=== PATIENT | female | born 1975 | race Caucasian/White ===

== ENCOUNTER 2016-10-31 20:56 | Inpatient (IN) | payer BC, MEDICAID ==
[~2016-10-31] VITALS: Ht 170.2 cm; Wt 114.5 kg
--- NOTE | ~2016-10-31 | HP ---
Unit #: [id number] #: [id number] Patient: MITCHEL MEJIA [id number] [address] [place], [place] [address] [id number] I MR#: [id number] NAME: MITCHEL MEJIA ROOM: CIC2 Age: 40 Sex: F Admission Date: 10/31/2016 : 1975 Attending Physician: Raymundo Grady M.D. Primary Care Physician: No Primary Care Physician HISTORY AND PHYSICAL DATE November 01, 2016. CHIEF COMPLAINT Shortness of breath. HISTORY OF PRESENT ILLNESS A 40-year-old female who has had asthma all her life, currently on albuterol only. She has been tried on a variety of other inhalers such as Symbicort and Advair but did not have them over the last several months. Over the last several months, she has had increasing shortness of breath, chest tightness. She actually went to an emergency room about two weeks ago, received prednisone and improved but then worsened. She called her family doctor for Advair but there was some insurance mixup. Finally, she presented to the emergency room here. Apparently, EMS started bagging the patient en route. She was treated in the emergency room. BiPAP was ordered as needed and transferred to the intensive care unit. Overnight, she has done very well. She currently is off oxygen and saturations are 100%. She feels back to basically her normal state. She had cough, minimal sputum production. No fever. No hemoptysis. No chest pain. She cannot think of any particular exposures. PAST MEDICAL HISTORY 1. Asthma. 2. Bipolar disorder, currently requiring no medications. 3. Occasional insomnia. 4. The need for bilateral hearing aide. HOME MEDICATIONS 1. Albuterol as needed. 2. Sleep aide that she cannot remember the name of that she takes maybe twice a week. ALLERGIES Penicillin and Bactrim. SOCIAL HISTORY She is a never smoker. She lives in an apartment. FAMILY HISTORY Asthma in her father. REVIEW OF SYSTEMS She has been allergy tested in the past and is allergic to pollens and Unit #: [id number] #: [id number] Patient: MITCHEL MEJIA some foods. She denies fever, chills, headache, chest pain, palpitations, abdominal pain, melena, hematochezia, nausea, vomiting, hematuria, dysuria, focal weakness, paraesthesia, leg pain, swelling. Further review of systems negative. PHYSICAL EXAMINATION GENERAL: Reveals a patient who is in no acute distress. She is eating well. VITAL SIGNS: Saturations are 100% on room air. She is afebrile. Pulse 95, respiratory rate 12, blood pressure is 105/59. She is 5 foot 7 inches, 252 pounds. BMI is 39. HEENT: Pupils equal, round, reactive to light. Sclerae anicteric. Head: Atraumatic. NECK: Supple. No supraclavicular or cervical adenopathy appreciated. CHEST: Remarkably clear. No wheeze, stridor. CARDIAC: Reveals regular rate and rhythm. No pathologic murmur, rub, or gallop. ABDOMEN: Soft, nontender. No hepatomegaly, rebound. EXTREMITIES: Reveal no clubbing, cyanosis, or edema. No calf tenderness. SKIN: Warm and dry without rash or diaphoresis. NEUROLOGIC: Grossly intact. No focal muscle or sensory deficits. DIAGNOSTIC STUDIES LABORATORY: BUN 11, creatinine 0.7, sodium 130. BNP 7. Beta hCG negative. Cardiac enzymes negative. CBC normal. No eosinophilia. IMAGING: Chest x-ray: Negative. CARDIOVASCULAR: EKG: Sinus tachycardia. IMPRESSION 1. Asthma with exacerbation. 2. Clinical respiratory failure requiring bagging and EMS and consideration of noninvasive mask ventilation, resolved. 3. Bipolar disorder, stable. 4. Occasional insomnia. 5. Hyponatremia. PLAN Admission to the hospital. She is markedly improved. I think she can transfer out of the intensive care unit. She needs controlling medications including inhaled steroids and I will add Singulair. These will need to be continued as an outpatient. Ultimately, she might benefit from repeat allergy testing and PFTs. She does have significant obesity. Consider evaluation for sleep apnea. Dictated by Raymundo Grady M.D. JERMAIN/raina TD: 11/01/2016 10:49 JOB #: [id number] Unit #: [id number] #: [id number] Patient: MITCHEL MEJIA HISTORY AND PHYSICAL Page 1 of 1 X Raymundo Grady MD X HISTORY AND PHYSICAL
--- NOTE | ~2016-10-31 | CR72 ---
[facility] A Service of [facility] & [facility] RADIOLOGY TEXT RESULTS PATIENT: MITCHEL MEJIA LOCATION: [facility] 222-01 : [birth year] UNIT #: [id number] AGE: [address]: Raymundo Grady MD SEX: F ORDER DR: [id number] [facility] [address] [place], [place] [address] [id number] I MR#: [id number] Acc #: [id number] NAME: MITCHEL MEJIA : 1975 SEX: F STUDY DATE/TIME: 10/31/2016 21:18 UNIT: [facility] ROOM: [facility] STUDY DESCRIPTION: CR Chest Single View Portable Attending Physician: Raymundo Grady M.D. Ordering Physician: Adam Mccarthy D.O. Primary Care Physician: No Primary Care Physician MEDICAL IMAGING REPORT This report is preliminary unless electronic signature is present EXAM Portable chest 10/31/2016. HISTORY 40-year-old female with shortness of air beginning today. COMPARISON None. FINDINGS Frontal chest demonstrates clear lungs. No pleural effusion or pneumothorax. Heart size, mediastinum within normal limits. Pulmonary vasculature unremarkable. IMPRESSION No acute cardiopulmonary findings. Dictated by... Fede Painting M.D. THIS IS AN ELECTRONICALLY VERIFIED REPORT Fede Painting M.D. at 11/01/2016 3:18 PM JKB/shana TD: 11/01/2016 10:14 JOB #: [id number] MEDICAL IMAGING REPORT Page 1 of 1 COPY
--- NOTE | ~2016-10-31 | CR63 ---
[facility] A Service of [facility] RADIOLOGY TEXT RESULTS PATIENT: MITCHEL MEJIA LOCATION: [facility] 222-01 : 75 UNIT #: [id number] AGE: [address]: Raymundo Grady MD SEX: F ORDER DR: [id number] [facility] [address] [place], [place] [address] [id number] I MR#: [id number] Acc #: [id number] NAME: MITCHEL MEJIA : 1975 SEX: F STUDY DATE/TIME: 11/02/2016 7:42 UNIT: C2A ROOM: 222 STUDY DESCRIPTION: CR Chest 2 View Attending Physician: Raymundo Grady M.D. Ordering Physician: Yifan Pemberton M.D. Primary Care Physician: No Primary Care Physician MEDICAL IMAGING REPORT This report is preliminary unless electronic signature is present EXAM Chest, 11/02/2016, [facility]. HISTORY 40-year-old female short of air past 2 days. Patient also indicates cough at this time. History of asthma with possible exacerbation. COMPARISON Portable chest, 11/01/2016. FINDINGS Two-view chest demonstrates normal cardiac size and configuration. Hilar structures and mediastinal contours are preserved. Right lung is fully expanded and clear. Minimal atelectasis is noted left lung base with blunting of the left costophrenic angle. No convincing evidence for airspace infiltrates at this time. IMPRESSION 1. No vascular congestion noted. 2. Discoid atelectasis in the left lung base laterally with a obscuration of the costophrenic angle. I see no evidence for pneumonia at this time. Dictated by... Donavan Angel M.D. THIS IS AN ELECTRONICALLY VERIFIED REPORT Donavan Angel M.D. at 11/02/2016 1:47 PM ABBY/lisa TD: 11/02/2016 13:02 JOB #: [id number] [facility] A Service of [facility] RADIOLOGY TEXT RESULTS PATIENT: MITCHEL MEJIA LOCATION: [facility] 222-01 : [birth year] UNIT #: [id number] AGE: [address]: Raymundo Grady MD SEX: F ORDER DR: MEDICAL IMAGING REPORT Page 1 of 1 COPY
--- NOTE | ~2016-10-31 | DS ---
Unit #: [id number] #: [id number] Patient: MITCHEL MEJIA [id number] [address] [address] [id number] I MR#: [id number] NAME: MITCHEL MEJIA ROOM: 222 Age: 41 Sex: F Admission Date: 10/31/2016 : 1975 Discharge Date: 11/02/2016 Attending Physician: Raymundo Grady M.D. Primary Care Physician: Primary Care Physician No DISCHARGE SUMMARY DISCHARGE DIAGNOSES 1. Respiratory failure, requiring mask ventilation in EMS, resolved. 2. Hyponatremia, likely some degree of syndrome of inappropriate antidiuretic hormone secretion secondary to critical illness, resolved. 3. Asthma, improved. 4. Obesity. 5. Bipolar disorder. DISCHARGE MEDICATIONS Advair 500/50 one puff b.i.d., ProAir two puffs q.i.d. p.r.n., albuterol via nebulizer q.i.d. p.r.n., Singulair 10 mg one tablet at night, prednisone 40 mg a day for five days. FOLLOW UP She will follow up Dr. Artis in 2 to 3 weeks for general medical care. Follow up with our nurse practitioner in 2 weeks, consider arranging PFTs. Follow up with Dr. Grady in 6 to 8 weeks. DIET As tolerated. ACTIVITY No specific restrictions. DESCRIPTION OF HOSPITALIZATION The patient was admitted to the intensive care unit initially because of her significant respiratory failure and increased work of breathing. She rapidly improved with steroids and nebulized bronchodilators. She was treated with a few doses of antibiotics, but further history really there was no evidence of any acute bronchitis and her antibiotics were discontinued at discharge. On the day of discharge, her chest was clear. Her sodium was mildly low on admission and that had corrected to value of 137. She was ambulating, eating, and able to perform all activities of daily living. I have discussed with her the need for controlling medications and compliance. She will be treated with the above medications and followed up closely in the office. She will need PFTs. We will consider nocturnal polysomnography after further investigation and discussion. We will consider allergy testing. Dictated by... Raymundo Grady M.D. Unit #: [id number] #: [id number] Patient: MITCHEL MEJIA JERMAIN/jeanna TD: 11/05/2016 17:44 JOB #: [id number] DISCHARGE SUMMARY Page 1 of 1 X Raymundo Grady MD DISCHARGE SUMMARY
--- NOTE | ~2016-10-31 | EKG ---
PATIENT: MITCHEL MEJIA UNIT #: [id number] Ventricular Rate: 133 BPM Atrial Rate: 133 BPM P-R Interval: 134 ms QRS Duration: 66 ms Q-T Interval: 290 ms QTC Calculation(Bezet): 431 ms P Mcgregor: 67 degrees Calculated R Mcgregor: 48 degrees Calculated T Mcgregor: 26 degrees Diagnosis Line: Sinus tachycardia Diagnosis Line: Otherwise normal ECG Diagnosis Line: No previous ECGs available Diagnosis Line: Confirmed by MARCO MICHELLE MD ([id number]) on Diagnosis Line: 11/03/2016 10:48:29 AM INTERPRETING MD: MIGUEL ANGEL REBOLLAR
--- NOTE | ~2016-10-31 | CR72 ---
[facility] A Service of [facility] & [facility] RADIOLOGY TEXT RESULTS PATIENT: MITCHEL MEJIA LOCATION: [facility]2A 222-01 : [birth year] UNIT #: [id number] AGE: [address]: Raymundo Grady MD SEX: F ORDER DR: [id number] [facility] [address] [place], [place] [address] [id number] I MR#: [id number] Acc #: [id number] NAME: MITCHEL MEJIA : 1975 SEX: F STUDY DATE/TIME: 11/01/2016 4:56 UNIT: C2A ROOM: 222 STUDY DESCRIPTION: CR Chest Single View Portable Attending Physician: Raymundo Grady M.D. Ordering Physician: Raymundo Grady M.D. Primary Care Physician: Primary Care Physician No MEDICAL IMAGING REPORT This report is preliminary unless electronic signature is present EXAM Portable chest INDICATIONS Shortness of air and cough today. PROCEDURE Frontal view chest. COMPARISON 10/31/2016 FINDINGS Heart size unchanged. Central pulmonary vessels are slightly increased. No new dense consolidation visible pleural fluid or pneumothorax. IMPRESSION Slightly increased central pulmonary vessels suggesting mild congestion. Otherwise stable Dictated by... Gabriel Gonzalez M.D. THIS IS AN ELECTRONICALLY VERIFIED REPORT Gabriel Gonzalez M.D. at 11/02/2016 9:56 PM ABRAHAM/warner TD: 11/01/2016 12:44 JOB #: [id number] MEDICAL IMAGING REPORT Page 1 of 1 COPY
[2016-10-31 21:29] LABS: BASOPHIL% 0.3 % (0-2.5); EOSINOPHIL# 0.5 X10e3 (0-0.7); EOSINOPHIL% 3.5 % (0.0-7.0); HEMATOCRIT 41.1 % (35.0-45.0); HEMOGLOBIN 13.4 gm/dL (12.0-16.0); LYMPHOCYTE# 3.3 X10e3 (1.0-3.5); LYMPHOCYTE% 23.5 % (17.0-45.0); MEAN CELL VOLUME 93.5 FL (83-96); MEAN CORPUSCULAR HEMOGLOBIN 30.5 PG (28-34); MEAN CORPUSCULAR HGB CONC 32.6 g/dL (30-36); MEAN PLATELET VOLUME 7.5 FL (6.5-11.5); MONOCYTE# 0.9 X10e3 (0-1.0); MONOCYTE% 6.4 % (3.0-12.0); NEUTROPHIL# 9.2 X10e3 (1.5-7.1); NEUTROPHIL% 66.3 % (40-75); PLATELET COUNT 233 X10e3 (140-420); RED CELL DISTRIBUTION WIDTH 13.6 % (11.0-15.5); WHITE BLOOD COUNT 13.9 X10e3 (4.0-10.5)
[2016-10-31 21:30] LABS: DIFF IND NO
[2016-10-31 21:45] LABS: POC - CKMB 1.1 ng/mL (0.0-7.9); POC - TROPONIN <0.05 ng/mL (<=0.05)
[2016-10-31 21:56] LABS: CALCIUM SERUM 8.8 mg/dL (8.4-10.2); CREATININE SERUM 0.8 mg/dL (0.6-1.4); GLOM FILT RATE Estimated 92.3 mL/min (>60); POTASSIUM 3.8 mmol/L (3.5-5.1)
[2016-11-01 06:19] LABS: BASOPHIL% 0.1 % (0-2.5); EOSINOPHIL% 0.2 % (0.0-7.0); HEMATOCRIT 38.4 % (35.0-45.0); HEMOGLOBIN 12.9 gm/dL (12.0-16.0); LYMPHOCYTE# 0.4 X10e3 (1.0-3.5); LYMPHOCYTE% 4.8 % (17.0-45.0); MEAN CELL VOLUME 93.3 FL (83-96); MEAN CORPUSCULAR HEMOGLOBIN 31.3 PG (28-34); MEAN CORPUSCULAR HGB CONC 33.5 g/dL (30-36); MEAN PLATELET VOLUME 7.5 FL (6.5-11.5); MONOCYTE# 0.1 X10e3 (0-1.0); MONOCYTE% 0.6 % (3.0-12.0); NEUTROPHIL# 8.8 X10e3 (1.5-7.1); NEUTROPHIL% 94.3 % (40-75); PLATELET COUNT 209 X10e3 (140-420); RED BLOOD COUNT 4.11 X10e (3.90-5.30); RED CELL DISTRIBUTION WIDTH 13.3 % (11.0-15.5); WHITE BLOOD COUNT 9.3 X10e3 (4.0-10.5)
[2016-11-01 06:21] LABS: DIFF IND NO
[2016-11-01 06:53] LABS: BUN/CREATININE RATIO 15.71; CALCIUM SERUM 8.4 mg/dL (8.4-10.2); CREATININE SERUM 0.7 mg/dL (0.6-1.4); GLOM FILT RATE Estimated 108.4 mL/min (>60); POTASSIUM 4.1 mmol/L (3.5-5.1)
[2016-11-01] MEDS ORDERED: ALBUTEROL17 GM INH (08:09)
[2016-11-01] MEDS ORDERED: HYDRALAZINE HCL50 MG (08:10)
[2016-11-02 05:23] LABS: BASOPHIL% 0.1 % (0-2.5); LYMPHOCYTE# 0.9 X10e3 (1.0-3.5); LYMPHOCYTE% 6.5 % (17.0-45.0); MEAN CELL VOLUME 92.8 FL (83-96); MEAN CORPUSCULAR HGB CONC 33.4 g/dL (30-36); MEAN PLATELET VOLUME 7.2 FL (6.5-11.5); MONOCYTE% 6.9 % (3.0-12.0); NEUTROPHIL# 12.2 X10e3 (1.5-7.1); NEUTROPHIL% 86.5 % (40-75); PLATELET COUNT 209 X10e3 (140-420); RED BLOOD COUNT 3.88 X10e (3.90-5.30); RED CELL DISTRIBUTION WIDTH 13.3 % (11.0-15.5)
[2016-11-02 05:51] LABS: DIFF IND NO; WHITE BLOOD COUNT 14.1 X10e3 (4.0-10.5)
[2016-11-02 06:05] LABS: BUN/CREATININE RATIO 18.57; CALCIUM SERUM 9.1 mg/dL (8.4-10.2); CREATININE SERUM 0.7 mg/dL (0.6-1.4); GLOM FILT RATE Estimated 108.4 mL/min (>60); POTASSIUM 4.3 mmol/L (3.5-5.1)
[2016-11-02] MEDS ORDERED: DELTASONE20 MG PO (09:00)
[2016-11-02] MEDS ORDERED: PROAIR HFA8.5 GM INH (09:01)
[2016-11-02] MEDS ORDERED: SINGULAIR PO (09:02)
[2016-11-02] MEDS ORDERED: ADVAIR 500-501 EACH INH (09:02)
== END 2016-11-02 14:10 | disposition home or self-care (01) | DRG 202 ==
LOC: CED 20:56 → C2A 22:32 → CEDOF 22:32 → CICCU2 22:59 → CED 22:59 → CEDOF 22:59 → CICCU2 11-01 07:34 → C2A 11-01 11:54
PROVIDERS: Emergency Medicine; Internal Medicine
DX: J45.901 Unspecified asthma with (acute) exacerbation (principal); J96.00 Acute respiratory failure, unspecified whether with hypoxia or hypercapnia; E22.2 Syndrome of inappropriate secretion of antidiuretic hormone; E66.9 Obesity, unspecified; Z68.39 Body mass index [BMI] 39.0-39.9, adult; F31.9 Bipolar disorder, unspecified; Z88.0 Allergy status to penicillin; Z88.1 Allergy status to other antibiotic agents; Z82.5 Family history of asthma and other chronic lower respiratory diseases; G47.00 Insomnia, unspecified
CPT/HCPCS: 36415; 71010; 71020; 80048; 82553; 82947; 83880; 84484; 84703; 85025; 93005; 94640; 94660; 94664; 94760; 96365; 96375; 99291; J1650; J2920; J2930